=== PATIENT | male | born 1975 | race Caucasian/White ===

== ENCOUNTER 2018-08-24 16:21 | Inpatient (IN) | payer SELFPAY ==
[~2018-08-24] VITALS: Ht 170.2 cm; Wt 73.0 kg
--- NOTE | 2018-08-24 16:40 | NUR ---
C/O ABD PAIN SINCE YESTERDAY, +DIARRHEA, +N/V, PATIENT A/OX4, SLOVENIAN SPEAKING, BREATHING EVEN AND UNLABORED, NO SOB NOTED, PLACED ON THE MONITOR. MD AT BEDSIDE FOR EVAL.
[2018-08-24] MEDS ORDERED: MORPHINE SULFATE INJ 4 MG/ML DISP.SYRIN ONE ×2 (16:46→17:47)
[2018-08-24] MEDS ORDERED: ONDANSETRON HCL/PF 4 MG/2 ML VIAL ONE (16:46)
[2018-08-24 16:50] LABS: BASOPHILS % (AUTO) 0.1 % (0.0-2.0); EOSINOPHILS % (AUTO) 0.1 % (0.0-6.0); HEMATOCRIT 43 % (39-51); HEMOGLOBIN 14.5 g/dL (13.5-17.5); LYMPHOCYTES # (AUTO) 0.7 /CMM (0.8-4.8); LYMPHOCYTES % (AUTO) 6.3 % (20.0-44.0); MEAN CORPUSCULAR HGB CONC 34 g/dl (31.0-36.0); MEAN CORPUSCULAR VOLUME 87 fL (80-96); MONOCYTES # (AUTO) 0.2 /CMM (0.1-1.30); MONOCYTES % (AUTO) 2.1 % (2.0-12.0); NEUTROPHILS # (AUTO) 10.4 /CMM (1.8-8.9); NEUTROPHILS % (AUTO) 91.4 % (43.0-81.0); PLATELET COUNT (AUTO) 342 /CMM (150-450); RED BLOOD CELL COUNT(AUTO) 4.89 MIL/uL (4.5-6.0); WHITE BLOOD COUNT (AUTO) 11.4 K/uL (4.3-11.0)
[2018-08-24 16:57] LABS: CALCIUM, SERUM 9.2 mg/dL (8.5-10.1); CREATININE 0.9 mg/dL (0.6-1.3); POTASSIUM 3.9 mmol/L (3.5-5.1)
[2018-08-24] MEDS ORDERED: ONDANSETRON HCL/PF 4 MG/2 ML VIAL IVP ONE (17:00)
[2018-08-24] MEDS ORDERED: MORPHINE SULFATE INJ 2 MG/ML DISP.SYRIN IV ONE ×2 (17:00→18:00)
[2018-08-24] MEDS ORDERED: IV NS 0.9% 1,000 ML BAG IV ONE ×2 (17:00→17:30)
[2018-08-24 17:03] LABS: ALBUMIN 3.9 g/dL (3.4-5.0); BILIRUBIN,DIRECT 0.1 mg/dL (0.0-0.2); BILIRUBIN,TOTAL 0.4 mg/dL (0.2-1.0); TOTAL PROTEIN, SERUM 7.6 g/dL (6.4-8.2)
[2018-08-24] MEDS ORDERED: PIPERACILLIN /TAZOBACTAM 3.375 G in IV D5W 50 ML IV ONE (17:30)
[2018-08-24 17:35] LABS: APPEARANCE,URINE Clear (CLEAR); BILIRUBIN,URINE Negative (NEGATIVE); BLOOD, URINE Trace-intact Ery/uL (NEGATIVE); COLOR,URINE Yellow (YELLOW); KETONES,URINE Negative (NEGATIVE); LEUKOCYTE ESTERASE ,URINE Negative (NEGATIVE); NITRITE, URINE Negative (NEGATIVE); PROTEIN,URINE Negative (NEGATIVE); UGLUCOSE Negative (NEGATIVE)
--- NOTE | 2018-08-24 17:45 | NUR ---
PATIENT SEEN BY NATALIA CHRISTIAN DNP
[2018-08-24 17:47] LABS: BACTERIA,URINE Rare /HPF (None Seen); SQUAMOUS EPITHELIAL CELL,UR Few /HPF (None Seen); WBC,URINE NONE SEEN /HPF (0-3)
[2018-08-24] MEDS ORDERED: MAG HYDROX/AL HYDROX/SIMETH 30 ML UDC PO PRN (18:00)
[2018-08-24] MEDS ORDERED: ONDANSETRON HCL/PF 4 MG/2 ML VIAL IVP PRN (18:00)
[2018-08-24] MEDS ORDERED: MAGNESIUM HYDROXIDE 30 ML UDC PO PRN (18:00)
[2018-08-24] MEDS ORDERED: MORPHINE SULFATE INJ 2 MG/ML DISP.SYRIN IV PRN (18:00)
--- NOTE | 2018-08-24 19:04 | NUR ---
PATIENT SEEN BY DR. HERMAN, PER , HE WANTS TO HOLD SURGERY AT THIS TIME, AND HE WILL ORDER A HIDA SCAN. NATALIA CHRISTIAN DNP MADE AWARE.
--- NOTE | 2018-08-24 19:38 | NUR ---
PATIENT ENDORSED TO FITO DUBON FOR JESSICA.
--- NOTE | 2018-08-24 20:20 | NUR ---
pt to 3w via wheelchair.
[2018-08-24] MEDS: IV NS 0.9% 1,000 ML IV PRN (20:22)
[2018-08-24 20:30] VITALS: BP 136/78
[2018-08-24] MEDS: FAMOTIDINE/PF INJ 20 MG/2 ML VIAL IV SCH (20:49)
--- NOTE | 2018-08-24 20:50 | NUR ---
Receive pt from E.R services at 2030 via wheelchair pt a/o x 4 admit to M.S floor unit with chief complaint of abdominal pain. VS stable afebrile, denies nausea and vomiting. he is Peruvian-speaking only patient understand little wolof. head to toe assessment is done skin is intact pt ambulatory, tolerating room air 98%. respirations even and unlabored. pt kept clean, dry and comfortable. safety measures in place. will cont to monitor
[2018-08-24] MEDS ORDERED: PIPERACILLIN /TAZOBACTAM 3.375 G in IV D5W 50 ML IV SCH (21:00)
[2018-08-25] MEDS ORDERED: PIPERACILLIN /TAZOBACTAM 3.375 G VIAL IV ONE (01:41)
[2018-08-25] MEDS ORDERED: PIPERACILLIN /TAZOBACTAM 3.375 G in IV D5W 50 ML IV SCH (05:00)
--- NOTE | 2018-08-25 06:22 | NUR ---
MS RN ASLEEP AND EASILY AWAKEN, TOLERATING AIR 99%. RESPIRATION EVEN AND UNLABORED, KEPT CLEAN AND DRY AND COMFORTABLE. NEEDS ATTENDED AND ANTICIPATED, NURSING CARE RENDERED, NO C/O PAIN AT THIS TIME. SLEPT WELL THROUGHOUT THE NIGHT. APPEARS COMFORTABLE. SAFETY MEASURES AT ALL TIMES. ENDORSE TO THE NEXT SHIFT.
--- NOTE | 2018-08-25 07:30 | NUR ---
MS RN OPENING NOTES RECEIVED PT AWAKE, A/O X4. TOLERATING RA, WITH NO ACUTE RESPIRATORY DISTRESS NOTED. PT DENIES PAIN AND DISCOMFORT. IVF NS 100ML/HR TO RAC G20, INTACT AND FLUID INFUSING WELL. PT DENIES ANY CONCERNS OR QUESTIONS AT THIS TIME. PT KEPT COMFORTABLE. PT'S BED IN LOWEST, LOCKED POSITION WITH SR X2. CALL LIGHT KEPT WITHIN REACH. WILL CONTINUE PLAN OF CARE.
[2018-08-25 07:41] LABS: EOSINOPHILS % (AUTO) 0.1 % (0.0-6.0); HEMATOCRIT 41 % (39-51); HEMOGLOBIN 14.1 g/dL (13.5-17.5); LYMPHOCYTES # (AUTO) 0.3 /CMM (0.8-4.8); MEAN CORPUSCULAR HGB CONC 34 g/dl (31.0-36.0); MEAN CORPUSCULAR VOLUME 86 fL (80-96); MONOCYTES # (AUTO) 0.2 /CMM (0.1-1.30); MONOCYTES % (AUTO) 2.2 % (2.0-12.0); NEUTROPHILS # (AUTO) 10.1 /CMM (1.8-8.9); NEUTROPHILS % (AUTO) 94.7 % (43.0-81.0); PLATELET COUNT (AUTO) 291 /CMM (150-450); RED BLOOD CELL COUNT(AUTO) 4.79 MIL/uL (4.5-6.0); WHITE BLOOD COUNT (AUTO) 10.7 K/uL (4.3-11.0)
[2018-08-25 07:53] LABS: CALCIUM, SERUM 8.9 mg/dL (8.5-10.1); CREATININE 1.1 mg/dL (0.6-1.3); MAGNESIUM 1.9 mg/dL (1.8-2.4); PHOSPHORUS 2.1 mg/dL (2.5-4.9); POTASSIUM 4.1 mmol/L (3.5-5.1)
--- NOTE | 2018-08-25 08:09 | NUR ---
RN NOTES STATISTICAL CLERK ADVERTISING REPORTED 102.8 FEVER OF PT. PROVIDED COLD COMPRESS/TOWEL. RECREATION THERAPY TEACHER NN IN THE UNIT MADE AWARE. TYLENOL 650 SUPP/RECTALLY Q6H PRN ORDERED AND CARRIED OUT.
[2018-08-25] MEDS ORDERED: ACETAMINOPHEN 650 MG/SUPP.RECT RC PRN (08:30)
[2018-08-25] MEDS: FAMOTIDINE/PF INJ 20 MG/2 ML VIAL IV SCH ×2 (08:36→16:31)
--- NOTE | 2018-08-25 09:08 | NUR ---
RN NOTES PT'S FEVER WENT DOWN TO 99.2. WILL CONTINUE TO MONITOR.
[2018-08-25 09:21] VITALS: BP 110/71
[2018-08-25] MEDS ORDERED: Sodium Phosphate 7.5 MMOL in IV D5W 100 ML IV ONE (12:00)
[2018-08-25] MEDS: PIPERACILLIN /TAZOBACTAM 3.375 G in IV D5W 100 ML IV SCH ×2 (12:58→20:57)
[2018-08-25] MEDS: IV NS 0.9% 1,000 ML IV PRN (15:07)
[2018-08-25] MEDS: ACETAMINOPHEN 325 MG TABLET PO PRN ×2 (15:26→20:57)
[2018-08-25 15:56] VITALS: BP 131/72
--- NOTE | 2018-08-25 18:55 | NUR ---
MS RN CLOSING NOTES PT REMAINS AWAKE, A/O X4. BELARUSIAN SPEAKING. PT ABLE TO AMBULATE. TOLERATING RA, WITH NO ACUTE RESPIRATORY DISTRESS NOTED. AFEBRILE. PT DENIES PAIN AND DISCOMFORT. IVF NS 100ML/HR TO RAC G20, INTACT AND FLUID INFUSING WELL. PT NOW ON CLEAR LIQUID DIET, NPO POST MIDNIGHT. PT AWARE OF PLANS. PT KEPT COMFORTABLE. PT'S BED IN LOWEST, LOCKED POSITION WITH SR X2. CALL LIGHT KEPT WITHIN REACH. WILL ENDORSE TO INCOMING NURSE FOR JESSICA.
--- NOTE | 2018-08-25 19:40 | NUR ---
RN MS OPENING NOTES RECEIVED PT IN BED, SLEEPING, EASILY AROUSE FO NAME CALL. BREATHING EVEN AND UNLABORED ON ROOM AIR. IV ACCESS ON THE R AC 20G NS @75ML/HR. BED IN LOWEST LOCKED POSITION. IN NO APPARENT PAIN OR DISCOMFORT AT THIS TIME. CALL LIGHT WITHIN REACH AT ALL TIME. WILL CONTINUE TO MONITOR FREQUENTLY.
[2018-08-25 20:00] VITALS: BP 113/60
[2018-08-26] MEDS: PIPERACILLIN /TAZOBACTAM 3.375 G in IV D5W 100 ML IV SCH ×2 (05:31→14:10)
--- NOTE | 2018-08-26 06:05 | NUR ---
RN MS CLOSING NOTES PT REMAINS IN BED AWAKE ALERT ORIENTED X4. BREATHING EVEN AND UNLABORED ON ROOM AIR. IV ACCESS ON THE R AC 20G NS @75ML/HR. BED IN LOWEST LOCKED POSITION. IN NO APPARENT PAIN OR DISCOMFORT AT THIS TIME. CALL LIGHT WITHIN REACH AT ALL TIME. WILL ENDORSE TO DAY NURSE FOR JESSICA. NPO SINCE MIDNIGHT IN PREP FOR HIDA SCAN, CONSENTS SIGNED
[2018-08-26 06:41] LABS: BASOPHILS % (AUTO) 0.3 % (0.0-2.0); EOSINOPHILS % (AUTO) 0.4 % (0.0-6.0); HEMATOCRIT 41 % (39-51); HEMOGLOBIN 13.7 g/dL (13.5-17.5); LYMPHOCYTES # (AUTO) 0.4 /CMM (0.8-4.8); LYMPHOCYTES % (AUTO) 8.1 % (20.0-44.0); MEAN CORPUSCULAR HGB CONC 33 g/dl (31.0-36.0); MEAN CORPUSCULAR VOLUME 87 fL (80-96); MONOCYTES # (AUTO) 0.3 /CMM (0.1-1.30); MONOCYTES % (AUTO) 5.8 % (2.0-12.0); NEUTROPHILS # (AUTO) 4.7 /CMM (1.8-8.9); NEUTROPHILS % (AUTO) 85.4 % (43.0-81.0); PLATELET COUNT (AUTO) 234 /CMM (150-450); WHITE BLOOD COUNT (AUTO) 5.5 K/uL (4.3-11.0)
[2018-08-26 06:53] LABS: CALCIUM, SERUM 8.5 mg/dL (8.5-10.1); CREATININE 1.3 mg/dL (0.6-1.3)
--- NOTE | 2018-08-26 07:32 | NUR ---
MS RN OPENING NOTES PATIENT IN BED AWAKE AND RESTING. PATIENT BREATHING ON ROOM AIR. BREATHING IS EVEN AND UNLABORED. PATIENT IS [place] SPEAKING ONLY. PATIENT IN NO ACUTE DISTRESS. PATIENT BED LOCKED AND IN LOW POSITION. CALL LIGHT WITHIN REACH. WILL CONTINUE TO MONITOR.
[2018-08-26 08:44] VITALS: BP 94/61
[2018-08-26] MEDS: FAMOTIDINE/PF INJ 20 MG/2 ML VIAL IV SCH ×2 (08:52→17:33)
--- NOTE | 2018-08-26 13:42 | NUR ---
MS RN NOTES RECEIVED PATIENT VIA WHEELCHAIR FROM HIDA SCAN. PATIENT IN NO ACUTE DISTRESS. WILL CONTINUE TO MONITOR.
[2018-08-26 16:20] VITALS: BP 130/73
--- NOTE | 2018-08-26 16:30 | NUR ---
MS RN NOTES CONTACTED DR. HERMAN ABOUT HIDA SCAN RESULTS. HIDA SCAN RESULTS ARE NEGATIVE WITH NO SIGNIFICANT IMPRESSION. PATIENT WANTS TO GO HOME. DR. EHRMAN SAID ITS OKAY TO PUT PATIENT ON REGULAR DIET AND DC PATIENT. CONTACTED NATALIA CHRISTIAN, HE SAID OKAY TO DC PATIENT. WILL CONTINUE TO CARRY OUT ORDERS AND CONTINUE TO MONITOR.
--- NOTE | 2018-08-26 19:35 | NUR ---
MS RN NOTES PATIENT DISCHARGED HOME WITH . PATIENT MEDICALLY STABLE. DISCHARGE TEACHING PROVIDED. VERBALIZED UNDERSTANDING. PATIENT TOLERATED DIET, DID NOT COMPLAIN OF PAIN THROUGHOUT THE SHIFT. ALL BELONGINGS ACCOUNTED FOR. BELONGINGS LIST SIGNED. PERIPHERAL IV REMOVED WITH MINIMAL BLEEDING. ID BAND REMOVED. PATIENT DISCHARGED WITH ASSISTANCE OF PM NURSE. PRESCRIPTION GIVEN TO PATIENT. ESCORTED TO CAR.
== END 2018-08-26 19:35 | disposition home or self-care (01) | DRG 394 ==
LOC: ER 16:24 → MED 19:56
PROVIDERS: ADMIT Nurse Practitioner Acute Care; ATTEND Nurse Practitioner Acute Care
DX: K35.80 Unspecified acute appendicitis (principal); E87.1 Hypo-osmolality and hyponatremia; K57.30 Diverticulosis of large intestine without perforation or abscess without bleeding; K40.20 Bilateral inguinal hernia, without obstruction or gangrene, not specified as recurrent; K44.9 Diaphragmatic hernia without obstruction or gangrene; R50.9 Fever, unspecified; D72.829 Elevated white blood cell count, unspecified; R73.03 Prediabetes; F17.210 Nicotine dependence, cigarettes, uncomplicated; F14.90 Cocaine use, unspecified, uncomplicated; E86.1 Hypovolemia
CPT/HCPCS: 36415; 71045-TC; 78226; 80048-TC; 80061-TC; 80076-TC; 81000-TC; 83605-TC; 83690-TC; 83735-TC; 84100-TC; 85025-TC; 85730-TC; 87040-TC; 87081-TC; A9537; A9563; G0378; J2270; J2405; J2543; J3490; J7030; J7060